=== PATIENT | female | born 1960 | race Caucasian/White ===

== ENCOUNTER → 2023-12-13 07:56 | Outpatient (REF) | payer OTHER, SELFPAY | LOC: WOUND 07:56 | PROVIDERS: ATTENDING PHYSICIAN Surgery; FAMILY PHYSICIAN Family Medicine | DX: L98.0 Pyogenic granuloma (principal); L98.9 Disorder of the skin and subcutaneous tissue, unspecified; S60.943A Unspecified superficial injury of left middle finger, initial encounter; C50.912 Malignant neoplasm of unspecified site of left female breast; K21.9 Gastro-esophageal reflux disease without esophagitis; W26.0XXA Contact with knife, initial encounter; Y93.G9 Activity, other involving cooking and grilling | CPT/HCPCS: 88305; 11401; 99204 ==

== ENCOUNTER → 2023-12-20 08:39 | Outpatient (REF) | payer OTHER, SELFPAY | LOC: WOUND 08:39 | PROVIDERS: ATTENDING PHYSICIAN Surgery; FAMILY PHYSICIAN Family Medicine | DX: L98.0 Pyogenic granuloma (principal); S60.943A Unspecified superficial injury of left middle finger, initial encounter; L98.9 Disorder of the skin and subcutaneous tissue, unspecified; Z90.13 Acquired absence of bilateral breasts and nipples; C50.912 Malignant neoplasm of unspecified site of left female breast; K21.9 Gastro-esophageal reflux disease without esophagitis; X58.XXXA Exposure to other specified factors, initial encounter | CPT/HCPCS: 99213 ==

== ENCOUNTER → 2023-12-27 08:44 | Outpatient (REF) | payer OTHER, SELFPAY | LOC: WOUND 08:44 | PROVIDERS: ATTENDING PHYSICIAN Surgery; FAMILY PHYSICIAN Family Medicine | DX: L98.0 Pyogenic granuloma (principal); L98.9 Disorder of the skin and subcutaneous tissue, unspecified; S60.943A Unspecified superficial injury of left middle finger, initial encounter; Z90.13 Acquired absence of bilateral breasts and nipples; C50.912 Malignant neoplasm of unspecified site of left female breast; K21.9 Gastro-esophageal reflux disease without esophagitis; X58.XXXA Exposure to other specified factors, initial encounter | CPT/HCPCS: 99212 ==

== ENCOUNTER → 2024-01-19 08:04 | Outpatient (REF) | payer OTHER, SELFPAY | LOC: RAD 08:04 | PROVIDERS: ATTENDING PHYSICIAN Physician Assistant | DX: M25.562 Pain in left knee (principal) | CPT/HCPCS: 73564 ==

== ENCOUNTER → 2024-06-12 15:48 | Outpatient (REF) | payer MEDICARE, SELFPAY | LOC: RCS 15:48 | PROVIDERS: ATTENDING PHYSICIAN Internal Medicine Cardiovascular Disease; FAMILY PHYSICIAN Physician Assistant | DX: I35.1 Nonrheumatic aortic (valve) insufficiency (principal); I35.8 Other nonrheumatic aortic valve disorders | CPT/HCPCS: 93306 ==

== ENCOUNTER → 2024-06-30 07:54 | Outpatient (REF) | payer MEDICARE, SELFPAY | LOC: HWRAD 07:54 | PROVIDERS: ATTENDING PHYSICIAN Physician Assistant; FAMILY PHYSICIAN Family Medicine | DX: R10.11 Right upper quadrant pain (principal); R10.13 Epigastric pain | CPT/HCPCS: 76700 ==

== ENCOUNTER → 2024-08-21 08:25 | Outpatient (REF) | payer MEDICARE, SELFPAY | LOC: RAD 08:25 | PROVIDERS: ATTENDING PHYSICIAN Physician Assistant | DX: R10.13 Epigastric pain (principal); R10.11 Right upper quadrant pain | CPT/HCPCS: 74177; Q9967 ==

== ENCOUNTER → 2024-09-29 08:30 | Outpatient (REF) | payer MEDICARE, SELFPAY | LOC: RAD 08:30 | PROVIDERS: ATTENDING PHYSICIAN Physician Assistant; FAMILY PHYSICIAN Family Medicine | DX: R74.8 Abnormal levels of other serum enzymes (principal) | CPT/HCPCS: 78306; A9503 ==

== ENCOUNTER → 2024-11-27 09:02 | Outpatient (REF) | payer MEDICARE, SELFPAY | LOC: RAD 09:02 | PROVIDERS: ATTENDING PHYSICIAN Family Medicine | DX: G62.9 Polyneuropathy, unspecified (principal); R09.89 Other specified symptoms and signs involving the circulatory and respiratory systems | CPT/HCPCS: 93925; 95886; 95911 ==

== ENCOUNTER → 2024-12-02 09:18 | Outpatient (REF) | payer MEDICARE, SELFPAY | LOC: RAD 09:18 | PROVIDERS: ATTENDING PHYSICIAN Family Medicine; FAMILY PHYSICIAN Family Medicine | DX: M79.671 Pain in right foot (principal) | CPT/HCPCS: 73630 ==

== ENCOUNTER → 2024-12-22 07:52 | Outpatient (REF) | payer MEDICARE, SELFPAY | LOC: RAD 07:52 | PROVIDERS: ATTENDING PHYSICIAN Obstetrics & Gynecology Gynecologic Oncology; FAMILY PHYSICIAN Family Medicine | DX: C50.912 Malignant neoplasm of unspecified site of left female breast (principal); C54.1 Malignant neoplasm of endometrium | CPT/HCPCS: 71260; 74177; Q9967 ==

== ENCOUNTER 2025-03-12 06:18 | Day surgery (SDC) | payer MEDICARE, SELFPAY | END 2025-03-12 11:49 | disposition home or self-care (01) | LOC: GI 06:18 | PROVIDERS: ATTENDING PHYSICIAN Internal Medicine | DX: Z12.11 Encounter for screening for malignant neoplasm of colon (principal); R19.5 Other fecal abnormalities; K64.8 Other hemorrhoids | CPT/HCPCS: G0121 ==